=== PATIENT | female | born 1995 | race Hispanic/Latino ===

== ENCOUNTER 2019-01-20 13:12 | Emergency (ER) | payer OTHER ==
[2019-01-20 14:06] LABS: Absolute Lymphocytes (CBC) 1.4 K/uL (0.7-4.9); Basophils % 0.6 % (0-1.3); Eosinophils % 5.2 % (0-4.4); Hematocrit 43.5 % (36.0-45.0); Lymphocytes % 19.2 % (15.3-44.8); MPV 9.3 fL (7.6-11.3); Monocytes % 9.7 % (3.3-12.3); RBC Red Blood Cell Count 4.66 M/uL (3.86-4.86)
[2019-01-20 14:25] LABS: Potassium 3.8 mmol/L (3.5-5.1)
[2019-01-20] MEDS ORDERED: NA CHLORIDE 0.9% 1,000 ML ONE (15:04)
--- NOTE | 2019-01-20 15:48 | RAD REPORT ---
EXAM DESCRIPTION: US - Transvaginal OB - 01/20/2019 3:04 pm CLINICAL HISTORY: Vaginal bleeding, , beta HCG 195 COMPARISON: January 18 FINDINGS: No intrauterine gestational sac or sac remnant present. The gestational sac seen January 18 i s no longer present. No hematoma, mass or retained products of conception seen. No myometrial mass. Both ovaries are identified and normal in size. No suspicious ovarian or adnexal finding. No abnormal blood or fluid in the cul de sac. IMPRESSION: No intrauterine gestational sac or sac remnant. No retained products of conception.
--- NOTE | 2019-01-20 15:51 | ER ---
Nurse's Notes [facility] Name: Antonia Green Age: 23 yrs Sex: Female : 1995 Arrival Date: 01/20/2019 Time: 13:13 Bed 16 Private MD: Unknown, Unknown Diagnosis: Complete or unspecified spontaneous without complication Presentation: 01/20 13:20 Presenting complaint: Patient states: I was about 11wk and went to the [address] could not find FHT. That was on Wednesday, yesterday I passed a large amount of clot or tissue and today I am having some cramping and some spotting today. Basically I just want to know if I miscarried or what is going on. Transition of care: patient was not received from another setting of care. Onset of symptoms was January 20, 2019. Risk Assessment: Do you want to hurt yourself or someone else? Patient reports no desire to harm self or others. Initial Sepsis Screen: Does the patient meet any 2 criteria? No. Patient's initial sepsis screen is negative. Does the patient have a suspected source of infection? No. Patient's initial sepsis screen is negative. Care prior to arrival: None. 13:20 Method Of Arrival: Ambulatory [facility] 13:20 Acuity: MADI 3 nj1 Triage Assessment: 14:00 General: Appears in no apparent distress. comfortable, Behavior is calm, cooperative. ae4 Pain: Complains of pain in right lower quadrant and left lower quadrant Quality of pain is described as crampy. EENT: No signs and/or symptoms were reported regarding the EENT system. Neuro: Level of Consciousness is awake, alert, obeys commands, Oriented to person, place, time, situation, Appropriate for age. Cardiovascular: Patient's skin is warm and dry. Respiratory: Airway is patent Respiratory effort is even, unlabored, Respiratory pattern is regular, symmetrical. GI: Abdomen is flat, non-distended, Abd is soft and non tender X 4 quads. : Reports vaginal bleeding that is spotty. Derm: Skin is normal. Musculoskeletal: No signs and/or symptoms reported regarding the musculoskeletal system. 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 - Social history:: Smoking status: Patient/guardian denies using tobacco. - Ebola Screening: : No symptoms or risks identified at this time. Screenin:00 Abuse screen: Denies threats or abuse. Nutritional screening: No deficits noted. ae4 Tuberculosis screening: No symptoms or risk factors identified. Fall Risk None identified. Assessment: 15:59 Reassessment: Patient appears in no apparent distress at this time. Patient and/or ae4 family updated on plan of care and expected duration. Pain level reassessed. Patient states feeling better. 16:03 Reassessment: Patient appears in no apparent distress at this time. Patient and/or ae4 family updated on plan of care and expected duration. Pain level reassessed. Patient is alert, oriented x 3, equal unlabored respirations, skin warm/dry/pink. Provider at bedside discussing plan of care. IV fluids still infusing. 16:04 GI: Bowel sounds present X 4 quads. ae4 Vital Signs: 13:22 BP 140 / 80; Pulse 115; Resp 16; Temp 98.3; Pulse Ox 98% on R/A; Weight 56.7 kg; Height la1 5 ft. 5 in. (165.10 cm); 14:53 BP 107 / 56; Pulse 77; Resp 16; Pulse Ox 99% on R/A; ae4 15:20 BP 115 / 65; Pulse 77; Resp 16; Temp 98.3(O); Pulse Ox 99% on R/A; ae4 13:22 Body Mass Index 20.80 (56.70 kg, 165.10 cm) la1 ED Course: 13:13 Patient arrived in ED. ag5 13:15 Unknown, Unknown is Private Physician. ag5 13:22 Triage completed. la1 13:22 Arm band placed on left wrist. la1 13:46 [facility]C [facility] snw 13:46 Haris Houser MD is Attending Physician. snw 14:00 Bed in low position. Call light in reach. Side rails up X 1. Pulse ox on. NIBP on. Warm ae4 blanket given. 14:01 Initial lab(s) drawn, by me, sent to lab. Inserted saline lock: 20 gauge in left ms antecubital area, using aseptic technique. Blood collected. 14:47 Collin Klein, RN is Primary Nurse. ae4 15:06 Transvaginal Ob In Process Unspecified. EDMS 16:18 No provider procedures requiring assistance completed. IV discontinued, intact, ae4 bleeding controlled, No redness/swelling at site. Pressure dressing applied. Administered Medications: 14:50 Drug: NS 0.9% 1000 ml Route: IV; Rate: 1 bolus; Site: left antecubital; ae4 Outcome: 15:50 Discharge ordered by . niko 16:18 Patient left the ED. ae4 16:18 Discharged to home ambulatory. ae4 16:18 Condition: stable 16:18 Discharge instructions given to patient, Instructed on discharge instructions, follow up and referral plans. Demonstrated understanding of instructions. Signatures: Dispatcher [employer] EDKS Grisel Jeong, TOLL LINE INSPECTOR-C TOLL LINE INSPECTOR-Csnw Adwoa Morales ms, Lee RN RN la1 Thalia Unger ag5 Collin Klein, RN RN ae4
--- NOTE | 2019-01-20 15:51 | EDPHYS ---
Physician Documentation [facility] Name: Antonia Green Age: 23 yrs Sex: Female : 1995 Arrival Date: 01/20/2019 Time: 13:13 Bed 16 Private MD: Unknown, Unknown ED Physician Haris Houser HPI: 01/20 14:37 This 23 yrs old Female presents to ER via Ambulatory with complaints of snw Abdominal Pain, Vaginal Bleeding, + Preg <12wks. 14:37 The patient presents with abdominal pain in the lower abdomen. Onset: The snw symptoms/episode began/occurred gradually, 3 day(s) ago, and improved. The symptoms do not radiate. Associated signs and symptoms: Pertinent positives: vaginal bleeding. The symptoms are described as crampy. Severity of pain: At its worst the pain was moderate in the emergency department the pain has improved. The patient has not experienced similar symptoms in the past. The patient has not recently seen a physician. Pt is here with first , pt states she should be around 11 weeks . Had some lower abd pain and bleeding then passed a large clot and the bleeding slowed to spotting.. 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 - Social history:: Smoking status: Patient/guardian denies using tobacco. - Ebola Screening: : No symptoms or risks identified at this time. ROS: 14:36 Constitutional: Negative for fever, chills, and weight loss, Eyes: Negative for injury, snw pain, redness, and discharge, ENT: Negative for injury, pain, and discharge, Neck: Negative for injury, pain, and swelling, Cardiovascular: Negative for chest pain, palpitations, and edema, Respiratory: Negative for shortness of breath, cough, wheezing, and pleuritic chest pain, Back: Negative for injury and pain, MS/Extremity: Negative for injury and deformity, Skin: Negative for injury, rash, and discoloration, Neuro: Negative for headache, weakness, numbness, tingling, and seizure. 14:36 Abdomen/GI: Positive for abd cramping. 14:36 : Positive for vaginal bleeding, passed "large blood clot and then the bleeding slowed to spotting". Exam: 14:34 Constitutional: This is a well developed, well nourished patient who is awake, alert, snw and in no acute distress. Head/Face: Normocephalic, atraumatic. Eyes: Pupils equal round and reactive to light, extra-ocular motions intact. Lids and lashes normal. Conjunctiva and sclera are non-icteric and not injected. Cornea within normal limits. Periorbital areas with no swelling, redness, or edema. ENT: Nares patent. No nasal discharge, no septal abnormalities noted. Tympanic membranes are normal and external auditory canals are clear. Oropharynx with no redness, swelling, or masses, exudates, or evidence of obstruction, uvula midline. Mucous membranes moist. Neck: Trachea midline, no thyromegaly or masses palpated, and no cervical lymphadenopathy. Supple, full range of motion without nuchal rigidity, or vertebral point tenderness. No Meningismus. Chest/axilla: Normal chest wall appearance and motion. Nontender with no deformity. No lesions are appreciated. Cardiovascular: Tachycardic rate and rhythm with a normal S1 and S2. No gallops, murmurs, or rubs. Normal PMI, no JVD. No pulse deficits. Respiratory: Lungs have equal breath sounds bilaterally, clear to auscultation and percussion. No rales, rhonchi or wheezes noted. No increased work of breathing, no retractions or nasal flaring. Back: No spinal tenderness. No costovertebral tenderness. Full range of motion. Skin: Warm, dry with normal turgor. Normal color with no rashes, no lesions, and no evidence of cellulitis. MS/ Extremity: Pulses equal, no cyanosis. Neurovascular intact. Full, normal range of motion. Neuro: Awake and alert, GCS 15, oriented to person, place, time, and situation. Cranial nerves II-XII grossly intact. Motor strength 5/5 in all extremities. Sensory grossly intact. Cerebellar exam normal. Normal gait. Psych: Awake, alert, with orientation to person, place and time. Behavior, mood, and affect are within normal limits. 14:34 Abdomen/GI: Inspection: abdomen appears normal, Bowel sounds: normal, Palpation: abdomen is soft and non-tender. Vital Signs: 13:22 BP 140 / 80; Pulse 115; Resp 16; Temp 98.3; Pulse Ox 98% on R/A; Weight 56.7 kg; Height la1 5 ft. 5 in. (165.10 cm); 14:53 BP 107 / 56; Pulse 77; Resp 16; Pulse Ox 99% on R/A; ae4 15:20 BP 115 / 65; Pulse 77; Resp 16; Temp 98.3(O); Pulse Ox 99% on R/A; ae4 13:22 Body Mass Index 20.80 (56.70 kg, 165.10 cm) la1 MDM: 13:46 Patient medically screened. snw 15:51 Data reviewed: vital signs, nurses notes. Data interpreted: Pulse oximetry: on room air snw is 98 %. Interpretation: normal. Counseling: I had a detailed discussion with the patient and/or guardian regarding: the historical points, exam findings, and any diagnostic results supporting the discharge/admit diagnosis, the presence of at least one elevated blood pressure reading (>120/80) during this emergency department visit, lab results, radiology results, the need for outpatient follow up, to return to the emergency department if symptoms worsen or persist or if there are any questions or concerns that arise at home. Special discussion: Based on the history and exam findings, there is no indication for further emergent testing or inpatient evaluation. I discussed with the patient/guardian the need to see the OB Gyne specialist for further evaluation of the symptoms. 01/20 13:47 Order name: Quantitative Hcg; Complete Time: 14:32 snw 01/20 13:47 Order name: Abo/rh Typing; Complete Time: 15:26 snw 01/20 13:47 Order name: Basic Metabolic Panel; Complete Time: 14:32 snw 01/20 13:47 Order name: CBC with Diff; Complete Time: 14:13 snw 01/20 14:33 Order name: US Transvaginal Ob; Complete Time: 15:49 snw 01/20 13:47 Order name: Urine Test (obtain specimen); Complete Time: 14:01 snw 01/20 13:47 Order name: IV Saline Lock; Complete Time: 14:01 snw 01/20 13:47 Order name: Labs collected and sent; Complete Time: 14:01 snw 07/12 13:47 Order name: NPO; Complete Time: 14:01 snw 01/20 13:47 Order name: Urine Dipstick-Ancillary (obtain specimen); Complete Time: 14:01 snw 01/20 15:52 Order name: Recheck VS; Complete Time: 15:59 snw Administered Medications: 14:50 Drug: NS 0.9% 1000 ml Route: IV; Rate: 1 bolus; Site: left antecubital; ae4 Disposition: 16:26 Co-signature as Attending Physician, Haris Houser MD. rn Disposition: 01/20/19 15:50 Discharged to Home. Impression: Complete or unspecified spontaneous without complication. - Condition is Stable. - Discharge Instructions: Miscarriage, Rehydration, Adult. - Medication Reconciliation Form, Thank You Letter, Antibiotic Education, Prescription Opioid Use form. - Follow up: Emergency Department; When: As needed; Reason: Worsening of condition. Follow up: Private Physician; When: 2 - 3 days; Reason: Recheck today's complaints, Continuance of care, Re-evaluation by your physician. Signatures: Dispatcher [employer] EDMS Grisel Jeong, BLACK OXIDE COATING EQUIPMENT TENDER-C BLACK OXIDE COATING EQUIPMENT TENDER-Csnw Haris Houser MD MD rn Attema, Ant RN RN la1 Collin Klein RN RN ae4 Corrections: (The following items were deleted from the chart) 14:35 14:34 Constitutional: This is a well developed, well nourished patient who is awake, snw alert, and in no acute distress. Head/Face: Normocephalic, atraumatic. Eyes: Pupils equal round and reactive to light, extra-ocular motions intact. Lids and lashes normal. Conjunctiva and sclera are non-icteric and not injected. Cornea within normal limits. Periorbital areas with no swelling, redness, or edema. ENT: Nares patent. No nasal discharge, no septal abnormalities noted. Tympanic membranes are normal and external auditory canals are clear. Oropharynx with no redness, swelling, or masses, exudates, or evidence of obstruction, uvula midline. Mucous membranes moist. Neck: Trachea midline, no thyromegaly or masses palpated, and no cervical lymphadenopathy. Supple, full range of motion without nuchal rigidity, or vertebral point tenderness. No Meningismus. Chest/axilla: Normal chest wall appearance and motion. Nontender with no deformity. No lesions are appreciated. Cardiovascular: Regular rate and rhythm with a normal S1 and S2. No gallops, murmurs, or rubs. Normal PMI, no JVD. No pulse deficits. Respiratory: Lungs have equal breath sounds bilaterally, clear to auscultation and percussion. No rales, rhonchi or wheezes noted. No increased work of breathing, no retractions or nasal flaring. Back: No spinal tenderness. No costovertebral tenderness. Full range of motion. Skin: Warm, dry with normal turgor. Normal color with no rashes, no lesions, and no evidence of cellulitis. MS/ Extremity: Pulses equal, no cyanosis. Neurovascular intact. Full, normal range of motion. Neuro: Awake and alert, GCS 15, oriented to person, place, time, and situation. Cranial nerves II-XII grossly intact. Motor strength 5/5 in all extremities. Sensory grossly intact. Cerebellar exam normal. Normal gait. Psych: Awake, alert, with orientation to person, place and time. Behavior, mood, and affect are within normal limits. snw 16:18 15:50 01/20/2019 15:50 Discharged to Home. Impression: Complete or unspecified ae4 spontaneous without complication. Condition is Stable. Forms are Medication Reconciliation Form, Thank You Letter, Antibiotic Education, Prescription Opioid Use. Follow up: Emergency Department; When: As needed; Reason: Worsening of condition. Follow up: Private Physician; When: 2 - 3 days; Reason: Recheck today's complaints, Continuance of care, Re-evaluation by your physician. snw
== END 2019-01-20 16:18 | disposition home or self-care (01) ==
LOC: ER 13:12
DX: O03.9 Complete or unspecified spontaneous abortion without complication (principal)
CPT/HCPCS: 36415; 76817; 80048; 84702; 85025; 86900; 86901; 99284; J7030

== ENCOUNTER 2019-03-02 09:01 | Emergency (ER) | payer OTHER, SELFPAY ==
[2019-03-02 09:33] LABS: Urine Blood TRACE (NEG); Urine Glucose NEGATIVE (NEG); Urine Protein TRACE (NEG)
[2019-03-02] MEDS ORDERED: NA CHLORIDE 0.9% 2,000 ML ONE (09:51)
[2019-03-02] MEDS ORDERED: METOCLOPRAMIDE 10 MG/2mL INJ ONE (09:51)
[2019-03-02 10:30] LABS: Basophils % 0.3 % (0-1.3); Hematocrit 43.9 % (36.0-45.0); Lymphocytes % 11.9 % (15.3-44.8); MPV 9.4 fL (7.6-11.3); RBC Red Blood Cell Count 4.81 M/uL (3.86-4.86)
[2019-03-02] MEDS ORDERED: DIPHENHYDRAMINE 50 MG/ML VIAL ONE (10:34)
[2019-03-02 10:41] LABS: BUN Blood Urea Nitrogen 9 mg/dL (7-18); Bicarbonate 23 mmol/L (21-32); Glucose Level 85 mg/dL (74-106); Potassium 3.7 mmol/L (3.5-5.1); Sodium Level 138 mmol/L (136-145)
--- NOTE | 2019-03-02 11:10 | EDPHYS ---
Physician Documentation [facility] Name: Antonia Green Age: 23 yrs Sex: Female : 1995 Arrival Date: 03/02/2019 Time: 09:05 Bed 18 Private MD: ED Physician Kiran Andujar HPI: 03/02 10:36 This 23 yrs old Female presents to ER via Ambulatory with complaints of jr8 Vomiting - unk weeks preg. 10:36 The patient presents to the emergency department with nausea, vomiting. Onset: The jr8 symptoms/episode began/occurred yesterday. Possible causes: . The symptoms are aggravated by food , The symptoms are alleviated by nothing. Associated signs and symptoms: Pertinent positives: weakness and fatigue. Severity of symptoms: At their worst the symptoms were moderate in the emergency department the symptoms are unchanged. The patient has experienced a previous episode. The patient has not recently seen a physician. Stated that she had miscarriage in November. Has recovered from that and started to try again early last month. Took test and was found to be . Unknown LMP due to miscarry. Currently without abdominal pain/cramping, or vaginal bleeding/spotting. Has been nauseated for 3 days. Started to vomit uncontrollably yesterday. Now weak and fatigue . 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 - Social history:: Smoking status: Patient/guardian denies using tobacco. - Ebola Screening: : No symptoms or risks identified at this time. ROS: 10:36 Eyes: Negative for injury, pain, redness, and discharge, ENT: Negative for injury, jr8 pain, and discharge, Neck: Negative for injury, pain, and swelling, Cardiovascular: Negative for chest pain, palpitations, and edema, Respiratory: Negative for shortness of breath, cough, wheezing, and pleuritic chest pain, Back: Negative for injury and pain, : Negative for injury, bleeding, discharge, and swelling, MS/Extremity: Negative for injury and deformity, Skin: Negative for injury, rash, and discoloration, Neuro: Negative for headache, weakness, numbness, tingling, and seizure. 10:36 Abdomen/GI: Positive for nausea and vomiting, Negative for abdominal pain, diarrhea, constipation, abdominal cramps, abdominal distension. Exam: 10:36 Eyes: Pupils equal round and reactive to light, extra-ocular motions intact. Lids and jr8 lashes normal. Conjunctiva and sclera are non-icteric and not injected. Cornea within normal limits. Periorbital areas with no swelling, redness, or edema. ENT: Nares patent. No nasal discharge, no septal abnormalities noted. Tympanic membranes are normal and external auditory canals are clear. Oropharynx with no redness, swelling, or masses, exudates, or evidence of obstruction, uvula midline. Mucous membranes moist. Neck: Trachea midline, no thyromegaly or masses palpated, and no cervical lymphadenopathy. Supple, full range of motion without nuchal rigidity, or vertebral point tenderness. No Meningismus. Cardiovascular: Sinus Tachycardia with a normal S1 and S2. No gallops, murmurs, or rubs. Normal PMI, no JVD. No pulse deficits. Respiratory: Lungs have equal breath sounds bilaterally, clear to auscultation and percussion. No rales, rhonchi or wheezes noted. No increased work of breathing, no retractions or nasal flaring. Abdomen/GI: Soft, non-tender, with normal bowel sounds. No distension or tympany. No guarding or rebound. No evidence of tenderness throughout. Back: No spinal tenderness. No costovertebral tenderness. Full range of motion. Skin: Warm, dry with normal turgor. Normal color with no rashes, no lesions, and no evidence of cellulitis. MS/ Extremity: Pulses equal, no cyanosis. Neurovascular intact. Full, normal range of motion. Neuro: Awake and alert, GCS 15, oriented to person, place, time, and situation. Cranial nerves II-XII grossly intact. Motor strength 5/5 in all extremities. Sensory grossly intact. Cerebellar exam normal. Normal gait. Vital Signs: 09:13 BP 131 / 74; Pulse 110; Resp 16; Temp 97.7; Pulse Ox 100% ; Weight 52.16 kg; Height 5 hb ft. 7 in. (170.18 cm); Pain 0/10; 10:28 BP 101 / 88; Pulse 105; Resp 18 S; Pulse Ox 100% on R/A; Pain 0/10; aa5 12:40 BP 107 / 84; Pulse 108; Resp 18 S; Pulse Ox 100% on R/A; Pain 0/10; aa5 09:13 Body Mass Index 18.01 (52.16 kg, 170.18 cm) hb 12:40 PA notified of VS before d/c home, states it's okay to d/c patient now. aa5 MDM: 09:22 Patient medically screened. ramandeep 10:57 Data reviewed: vital signs, nurses notes, lab test result(s), and as a result, I will jr8 discharge patient. Data interpreted: Pulse oximetry: on room air is 100 %. Interpretation: normal. Counseling: I had a detailed discussion with the patient and/or guardian regarding: the historical points, exam findings, and any diagnostic results supporting the discharge/admit diagnosis, lab results, the need for outpatient follow up, an OB/Gyne specialist, to return to the emergency department if symptoms worsen or persist or if there are any questions or concerns that arise at home. Response to treatment: the patient's symptoms have markedly improved after treatment, patient is well hydrated. 03/02 09:19 Order name: Urine Dipstick--Ancillary (enter results); Complete Time: 09:45 03/02 09:19 Order name: Urine --Ancillary (enter results); Complete Time: 09:45 03/02 09:45 Order name: Basic Metabolic Panel; Complete Time: 10:46 03/02 09:45 Order name: CBC with Diff; Complete Time: 10:39 03/02 09:45 Order name: Creatinine for Radiology; Complete Time: 10:46 03/02 09:45 Order name: IV Saline Lock; Complete Time: 10:22 03/02 09:45 Order name: Labs collected and sent; Complete Time: : Administered Medications: 10:20 Drug: NS 0.9% 1000 ml Route: IV; Rate: 1000 ml; Site: right antecubital; aa5 10:35 Follow up: IV Status: Completed infusion; IV Intake: 1000ml aa5 10:20 Drug: NS 0.9% 1000 ml Route: IV; Rate: 1000 ml; Site: right antecubital; aa5 11:43 Follow up: IV Status: Completed infusion; IV Intake: 1000ml aa5 10:22 Drug: Reglan 10 mg Route: IVP; Site: right antecubital; aa5 10:35 Follow up: Response: Pt c/o feeling anxious and restless, PA was notified aa5 10:37 Drug: Benadryl 25 mg Route: IVP; Site: right antecubital; aa5 11:48 Drug: Phenergan 12.5 mg Route: IVP; Site: right antecubital; aa5 Disposition: 15:30 Co-signature as Attending Physician, Kiran Andujar MD I agree with the assessment and ramandeep plan of care. Disposition: 03/02/19 11:09 Discharged to Home. Impression: Vomiting of , unspecified, Dehydration. - Condition is Stable. - Discharge Instructions: Dehydration, Adult, Morning Sickness, [id number]. - Prescriptions for promethazine 25 mg Oral Tablet - take 1 tablet by ORAL route every 6 hours As needed; 20 tablet. - Medication Reconciliation Form, Thank You Letter, Antibiotic Education, Prescription Opioid Use form. - Follow up: Private Physician; When: 2 - 3 days; Reason: Recheck today's complaints, Continuance of care, Re-evaluation by your physician. - Problem is new. - Symptoms have improved. Signatures: Dispatcher [employer] EDKiran Rich MD MD cha Calderon, Audri, RN RN aa5 Jayjay Perez PA PA jr8 Ant Magdaleno RN RN la1 [place] Landeros RN RN Corrections: (The following items were deleted from the chart) 13:21 11:09 03/02/2019 11:09 Discharged to Home. Impression: Vomiting of , la1 unspecified; Dehydration. Condition is Stable. Discharge Instructions: Dehydration, Adult, Morning Sickness, [id number]. Prescriptions for promethazine 25 mg Oral Tablet - take 1 tablet by ORAL route every 6 hours As needed; 20 tablet. and Forms are Medication Reconciliation Form, Thank You Letter, Antibiotic Education, Prescription Opioid Use. Follow up: Private Physician; When: 2 - 3 days; Reason: Recheck today's complaints, Continuance of care, Re-evaluation by your physician. Problem is new. Symptoms have improved. jr8
--- NOTE | 2019-03-02 11:10 | ER ---
Nurse's Notes [facility] Name: Antonia Green Age: 23 yrs Sex: Female : 1995 Arrival Date: 03/02/2019 Time: 09:05 Bed 18 Private MD: Diagnosis: Vomiting of , unspecified;Dehydration Presentation: 03/02 09:11 Presenting complaint: Nausea x 2 days, vomiting today. Not tolerating fluids. Reports + hb home test, has not had menses since miscarriage in November. Transition of care: patient was not received from another setting of care. Onset of symptoms was March 01, 2019. Risk Assessment: Do you want to hurt yourself or someone else? Patient reports no desire to harm self or others. Initial Sepsis Screen: Does the patient meet any 2 criteria? No. Patient's initial sepsis screen is negative. Does the patient have a suspected source of infection? No. Patient's initial sepsis screen is negative. Care prior to arrival: None. 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 - Social history:: Smoking status: Patient/guardian denies using tobacco. - Ebola Screening: : No symptoms or risks identified at this time. Screenin:00 Abuse screen: Denies threats or abuse. Nutritional screening: No deficits noted. aa5 Tuberculosis screening: No symptoms or risk factors identified. Fall Risk None identified. Assessment: 10:00 General: Appears uncomfortable, Behavior is calm, cooperative. Pain: Denies pain. aa5 Neuro: Level of Consciousness is awake, alert, obeys commands, Oriented to person, place, time, situation. Cardiovascular: Heart tones S1 S2 present Patient's skin is warm and dry. Rhythm is regular. Respiratory: Airway is patent Respiratory effort is even, unlabored, Respiratory pattern is regular, symmetrical. GI: Abdomen is flat, non-distended, Bowel sounds present X 4 quads. Abd is soft and non tender X 4 quads. Reports nausea, vomiting, since yesterday. Pt states "I haven't really eaten in about 3 days" Patient currently denies abdominal pain. : Denies burning with urination, inability to void, urinary frequency, urgency, vaginal bleeding. EENT: No signs and/or symptoms were reported regarding the EENT system. Derm: Skin is pink, warm \\T\\ dry. Musculoskeletal: Range of motion: intact in all extremities. 10:35 Reassessment: Patient is alert, oriented x 3, equal unlabored respirations, skin aa5 warm/dry/pink. Patient states symptoms have not improved. Pt c/o feeling anxious and restless, PA was notified . 11:43 Reassessment: Patient is alert, oriented x 3, equal unlabored respirations, skin aa5 warm/dry/pink. Pt reports anxiety has decreased, c/o nausea, PA notified. . 12:40 Reassessment: Patient is alert, oriented x 3, equal unlabored respirations, skin aa5 warm/dry/pink. Patient denies pain at this time. Patient states feeling better. Pt requesting to speak to PA before d/c home, PA notified . 13:15 Reassessment: Patient is alert, oriented x 3, equal unlabored respirations, skin aa5 warm/dry/pink. Vital Signs: 09:13 BP 131 / 74; Pulse 110; Resp 16; Temp 97.7; Pulse Ox 100% ; Weight 52.16 kg; Height 5 hb ft. 7 in. (170.18 cm); Pain 0/10; 10:28 BP 101 / 88; Pulse 105; Resp 18 S; Pulse Ox 100% on R/A; Pain 0/10; aa5 12:40 BP 107 / 84; Pulse 108; Resp 18 S; Pulse Ox 100% on R/A; Pain 0/10; aa5 09:13 Body Mass Index 18.01 (52.16 kg, 170.18 cm) hb 12:40 PA notified of VS before d/c home, states it's okay to d/c patient now. aa5 ED Course: 09:05 Patient arrived in ED. cf2 09:13 Triage completed. hb 09:13 Brandi Kern, RN is Primary Nurse. aa5 09:13 Arm band placed on. hb 09:18 Urine collected: clean catch specimen, marcus colored. [facility] 09:20 [facility] jr8 09:20 Kiran Andujra MD is Attending Physician. jr8 10:00 Patient has correct armband on for positive identification. Bed in low position. Call aa5 light in reach. Side rails up X2. 10:17 Initial lab(s) drawn, by me, sent to lab. Inserted saline lock: 22 gauge in right [facility] antecubital area, using aseptic technique. Blood collected. 13:15 No provider procedures requiring assistance completed. IV discontinued, intact, aa5 bleeding controlled, No redness/swelling at site. Pressure dressing applied. Administered Medications: 10:20 Drug: NS 0.9% 1000 ml Route: IV; Rate: 1000 ml; Site: right antecubital; aa5 10:35 Follow up: IV Status: Completed infusion; IV Intake: 1000ml aa5 10:20 Drug: NS 0.9% 1000 ml Route: IV; Rate: 1000 ml; Site: right antecubital; aa5 11:43 Follow up: IV Status: Completed infusion; IV Intake: 1000ml aa5 10:22 Drug: Reglan 10 mg Route: IVP; Site: right antecubital; aa5 10:35 Follow up: Response: Pt c/o feeling anxious and restless, SERGEY was notified aa5 10:37 Drug: Benadryl 25 mg Route: IVP; Site: right antecubital; aa5 11:48 Drug: Phenergan 12.5 mg Route: IVP; Site: right antecubital; aa5 Intake: 10:35 IV: 1000ml; Total: 1000ml. aa5 11:43 IV: 1000ml; Total: 2000ml. aa5 Outcome: 11:09 Discharge ordered by . jr8 13:15 Discharged to home ambulatory. aa5 13:15 Condition: stable 13:15 Discharge instructions given to patient, Instructed on discharge instructions, follow up and referral plans. medication usage, Demonstrated understanding of instructions, follow-up care, medications, Prescriptions given X 1. 13:18 Patient left the ED. aa5 Signatures: Brandi Kern RN RN 5 Jayjay Perez PA PA [facility] Ant Magdaleno RN RN mn1 [place] Landeros RN RN hb Herrera, Deanna [facility] Chantell Moss cf2 Corrections: (The following items were deleted from the chart) 10:31 10:28 Pulse 105bpm; Resp 18bpm; Spontaneous; Pulse Ox 100% RA; Pain 0/10; aa5 aa5 13:26 13:21 Patient left the ED. la1 aa5 15:19 12:40 BP 107 / 84; Pulse 108bpm; Resp 18bpm; Spontaneous; Pulse Ox 100% RA; Pain 0/10; aa5 aa5
[2019-03-02] MEDS ORDERED: PROMETHAZINE 25 MG/ML VIAL ONE (11:44)
== END 2019-03-02 13:21 | disposition home or self-care (01) ==
LOC: ER 09:01
DX: O21.9 Vomiting of pregnancy, unspecified (principal); E86.0 Dehydration; Z3A.00 Weeks of gestation of pregnancy not specified
CPT/HCPCS: 36415; 80048; 81003; 81025; 85025; 96361; 96374; 96375; 99284; J2550; J2765; J7030

== ENCOUNTER 2023-02-18 10:36 | Emergency (ER) | payer SELFPAY ==
--- OUTSIDE RECORDS SUMMARY | 2023-02-18 10:46 | XMS REPORT | Continuity of Care Document ---
:1995 Author Organization [facility] t Address [address] [place] [address] Care Team Providers Name Role Phone Asked, No Pcp Primary Care Physician Unavailable ERICKSON_GCBZW_Haris_Jamie Attending Clinician Unavailable JON MILLER Attending Clinician Unavailable COLIN BERMUDEZ Attending Clinician Unavailable [id number] Attending Clinician Unavailable Marsha Artis MD Attending Clinician JANETT SWEENEY Attending Clinician Unavailable GC_GCBZW_Harsi_Jamie Admitting Clinician Unavailable Problems Condition Condition Condition Status Onset Resolution Last Treating Co mments Source Name Details Category Date Date Treatment Clinician Date No known No known Disease Metho di active active st problems problems Hospit a l Allergies, Adverse Reactions, Alerts This patient has no known allergies or adverse reactions. Social History Social Habit Start Date Stop Date Quantity Comments Source Gender identity [facility] Exposure to Not sure Deysi cisneros SARS-CoV-2 (event) Tobacco use and 2021-04-10 2021-04-10 Smokeless Deysi becerra exposure 00:00:00 00:00:00 tobacco non-user Alcohol intake 2020-02-20 2020-02-20 [facility]00 non-drinker Hospital (finding) History of Social 2020-02-20 2020-02-[address] function 00:00:00 00:00:00 Hospital Sex Assigned At [birth year] [facility] Smoking Status Start Date Stop Date Source Never smoked tobacco Deysi Montemayor old Medications Ordered Filled Start Stop Current Ordering Indication Dosage Frequency Signature Comments Components Source Medication Medication Date Date Medication? Clinician (SIG) Name Name Doxycycline 1- No [id number] 100mg Take 1 Deysi Hyclate 100 9-30 - capsule Seyb old MG oral 00:00: 04:59 (100 mg Capsule 00 :00 total) by mouth 2 times daily for 7 days No known 2020-0 No No known Metho di medications [address] [facility] No known 2019-0 No No known Metho di medications [address] 13[facility] No known 2020-0 No No known Metho di medications [address] 13[facility] hydroxyzine 2018-0 No 12mg HCl 25 mg 8-28 tablet 00:00: 00 metronidazo 0 No 4mg le 500 mg 7-17 tablet 00:00: 00 No known No [facility] Vital Signs Vital Name Observation Time Observation Value Comments Source Systolic blood pressure 2021-04-10 21:03:00 108 mm[Hg] Deysi Semarinaold Diastolic blood 2021-04-10 21:03:00 70 mm[Hg] Kel y Parth pressure Heart rate 2021-04-10 21:03:00 70 /min Deysi bunnjohnny Body height 2021-04-10 21:03:00 165.1 cm Deysi alvaresedd Body weight 2021-04-10 21:03:00 51.075 kg Deysi thompson BMI 2021-04-10 21:03:00 18.74 kg/m2 Deysijigar bunnjohnny BP Systolic 2022-03-23 11:03:00 119 mm[Hg] BP Diastolic 2022-03-23 11:03:00 77 mm[Hg] Weight Measured 2022-03-23 11:03:00 124.20 pounds Height Measured 2022-03-23 11:03:00 66.00 inches Body Temperature 2022-03-23 11:03:00 98.30 degrees Heart Rate 2022-03-23 11:03:00 83.00 /min Respiratory Rate 2022-03-23 11:03:00 18.00 /min BP Systolic 2019-04-17 14:09:00 115 mm[Hg] BP Diastolic 2019-04-17 14:09:00 70 mm[Hg] Weight Measured 2019-04-17 14:09:00 116.80 pounds Height Measured 2019-04-17 14:09:00 66.00 inches Body Temperature 2019-04-17 14:09:00 99.80 degrees Heart Rate 2019-04-17 14:09:00 95.00 /min Respiratory Rate 2019-04-17 14:09:00 16.00 /min BP Systolic 2019-03-27 13:24:00 115 mm[Hg] BP Diastolic 2019-03-27 13:24:00 61 mm[Hg] Weight Measured 2019-03-27 13:24:00 116.40 pounds Height Measured 2019-03-27 13:24:00 66.00 inches Body Temperature 2019-03-27 13:24:00 98.14 degrees Heart Rate 2019-03-27 13:24:00 81.00 /min Respiratory Rate 2019-03-27 13:24:00 17.00 /min BP Systolic 2019-03-17 11:19:00 120 mm[Hg] BP Diastolic 2019-03-17 11:19:00 69 mm[Hg] Weight Measured 2019-03-17 11:19:00 117.20 pounds Height Measured 2019-03-17 11:19:00 66.00 inches Body Temperature 2019-03-17 11:19:00 97.90 degrees Heart Rate 2019-03-17 11:19:00 88.00 /min Respiratory Rate 2019-03-17 11:19:00 Body Temperature 2019-03-08 08:59:00 98.00 degrees Heart Rate 2019-03-08 08:59:00 88.00 /min Respiratory Rate 2019-03-08 08:59:00 17.00 /min BP Systolic 2019-03-08 08:59:00 106 mm[Hg] BP Diastolic 2019-03-08 08:59:00 62 mm[Hg] Weight Measured 2019-03-08 08:59:00 124.80 pounds Height Measured 2019-03-08 08:59:00 66.00 inches BP Systolic 2019-01-25 08:38:00 114 mm[Hg] BP Diastolic 2019-01-25 08:38:00 67 mm[Hg] Weight Measured 2019-01-25 08:38:00 125.80 pounds Height Measured 2019-01-25 08:38:00 66.00 inches Body Temperature 2019-01-25 08:38:00 98.30 degrees Heart Rate 2019-01-25 08:38:00 86.00 /min Respiratory Rate 2019-01-25 08:38:00 17.00 /min BP Systolic 2019-01-18 13:14:00 115 mm[Hg] BP Diastolic 2019-01-18 13:14:00 73 mm[Hg] Weight Measured 2019-01-18 13:14:00 126.60 pounds Height Measured 2019-01-18 13:14:00 66.00 inches Body Temperature 2019-01-18 13:14:00 99.00 degrees Heart Rate 2019-01-18 13:14:00 86.00 /min Respiratory Rate 2019-01-18 13:14:00 17.00 /min Procedures This patient has no known procedures. Plan of Care Planned Activity Planned Date Details Comments Source Future Scheduled 2023-02-14 [facility] 05:37:06 screening (procedure) [code = 722792481] Future Scheduled 2023-02-14 [facility] Test 05:37:06 malignant neoplasm of cervix (procedure) [code = 710523475] Future Scheduled 2023-02-14 INFLUENZA VACCINE [facility] Test 05:37:06 [code = INFLUENZA VACCINE] Future Scheduled 2023-02-14 COVID-19 VACCINE [facility] Test 05:37:06 (#1) [code = COVID-19 VACCINE (#1)] Future Scheduled 2022-12-27 COVID-19 VACCINE [facility] Test 11:14:28 (#1) [code = COVID-19 VACCINE (#1)] Future Scheduled 2022-12-27 [facility] 11:14:28 screening (procedure) [code = 638456070] Future Scheduled 2022-12-27 [facility] Test 11:14:28 malignant neoplasm of cervix (procedure) [code = 047315818] Future Scheduled 2022-12-27 [facility]ENZA VACCINE [facility] Test 11:14:28 [code = INFLUENZA VACCINE] Future Scheduled 2022-12-27 COVID-19 [facility]ACCINE [facility] Test 11:14:28 (#1) [code = COVID-19 VACCINE (#1)] Future Scheduled 2022-12-27 [facility] 11:14:28 screening (procedure) [code = 972568626] Future Scheduled 2022-12-27 [facility] Test 11:14:28 malignant neoplasm of cervix (procedure) [code = 249031874] Future Scheduled 2022-12-27 [facility]ZA VACCINE [facility] Test 11:14:28 [code = INFLUENZA VACCINE] Future Scheduled 2022-12-27 COVID-19 VACCINE [facility] Test 11:14:28 (#1) [code = COVID-19 VACCINE (#1)] Future Scheduled 2022-12-27 [facility] 11:14:28 screening (procedure) [code = 937148855] Future Scheduled 2022-12-27 [facility] Test 11:14:28 malignant neoplasm of cervix (procedure) [code = 846258985] Future Scheduled 2022-12-27 [facility]ZA [facility]ACCINE [facility] 11:14:28 [code = INFLUENZA VACCINE] Future Scheduled 2022-12-27 COVID-19 VACCINE [facility] Test 11:14:28 (#1) [code = COVID-19 VACCINE (#1)] Future Scheduled 2022-12-27 [facility] 11:14:28 screening (procedure) [code = 862985791] Future Scheduled 2022-12-27 [facility] Test 11:14:28 malignant neoplasm of cervix (procedure) [code = 698269713] Future Scheduled 2022-12-27 [facility]ENZA VACCINE [facility] Test 11:14:28 [code = INFLUENZA VACCINE] Future Scheduled 2022-12-27 COVID-19 VACCINE [facility] Test 11:14:28 (#1) [code = COVID-19 VACCINE (#1)] Future Scheduled 2022-12-27 [facility] 11:14:28 screening (procedure) [code = 993984210] Future Scheduled 2022-12-27 [facility] Test 11:14:28 malignant neoplasm of cervix (procedure) [code = 381870879] Future Scheduled 2022-12-27 [facility]FL[facility]ENZA VACCINE [facility] Test 11:14:28 [code = INFLUENZA VACCINE] Future Scheduled 2022-07-05 COVID-19 VACCINE [facility] Test 23:56:04 (#1) [code = COVID-19 VACCINE (#1)] Future Scheduled 2022-07-05 [facility] 23:56:04 screening (procedure) [code = 597842256] Future Scheduled 2022-07-05 [facility] Test 23:56:04 malignant neoplasm of cervix (procedure) [code = 670661338] Future Scheduled 2022-07-05 INFLUENZA VACCINE [facility] Test 23:56:04 [code = INFLUENZA VACCINE] Future Scheduled 2022-03-13 [facility]IS B [facility] 14:40:29 VACCINES (1 of 3 - 3-dose series) [code = HEPATITIS B VACCINES (1 of 3 - 3-dose series)] Future Scheduled 2022-03-13 COVID-19 VACCINE [facility] Test 14:40:29 (#1) [code = COVID-19 VACCINE (#1)] Future Scheduled 2022-03-13 [facility] Test 14:40:29 screening (procedure) [code = 757932495] Future Scheduled 2022-03-13 [facility] Test 14:40:29 malignant neoplasm of cervix (procedure) [code = 693067417] Future Scheduled 2022-03-13 INFLUENZA VACCINE [facility] Test 14:40:29 [code = INFLUENZA VACCINE] Future Scheduled 2022-03-13 [facility] B [facility] 14:40:29 VACCINES (1 of 3 - 3-dose series) [code = HEPATITIS B VACCINES (1 of 3 - 3-dose series)] Future Scheduled 2022-03-13 COVID-19 VACCINE [facility] Test 14:40:29 (#1) [code = COVID-19 VACCINE (#1)] Future Scheduled 2022-03-13 [facility] 14:40:29 screening (procedure) [code = 876131040] Future Scheduled 2022-03-13 [facility] Test 14:40:29 malignant neoplasm of cervix (procedure) [code = 019666719] Future Scheduled 2022-03-13 [facility]FL[facility]ENZA VACCINE [facility] Test 14:40:29 [code = INFLUENZA VACCINE] Future Scheduled 2022-03-13 [facility] 14:40:29 VACCINES (1 of 3 - 3-dose series) [code = HEPATITIS B VACCINES (1 of 3 - 3-dose series)] Future Scheduled 2022-03-13 COVID-[address] [facility] Test 14:40:29 (#1) [code = COVID-19 VACCINE (#1)] Future Scheduled 2022-03-13 [facility] 14:40:29 screening (procedure) [code = 042384395] Future Scheduled 2022-03-13 [facility] Test 14:40:29 malignant neoplasm of cervix (procedure) [code = 657162061] Future Scheduled 2022-03-13 INFLUENZA VACCINE [facility] Test 14:40:29 [code = INFLUENZA VACCINE] Future Scheduled COVID-[address] [facility] Test (1) [code = COVID-19 VACCINE (1)] Future Scheduled [facility] screening (procedure) [code = 266316029] Future Scheduled [facility] Test malignant neoplasm of cervix (procedure) [code = 554548010] Future Scheduled INFLUENZA VACCINE [facility] Test [code = INFLUENZA VACCINE] Future Scheduled CHLAMYDIA SCREENING [facility] [code = CHLAMYDIA SCREENING] Goal Plan of Care Note [code = 32643-9] Goal Plan of Care Note [code = 77705-6] Goal Plan of Care Note [code = 52786-9] Goal Plan of Care Note [code = 87516-2] Goal Plan of Care Note [code = 83879-9] Encounters Start End Encounter Admission Attending Care Care Encounter Source Date/Time Date/Time Type Type Clinicians Facility Department ID 2023-02-02 2023-02-02 Outpatient GC_GCBZW_Ro PRIV PRIV [id number] [facility] 00:00:00 00:00:00 man_M [id number] Medica l 2023-02-02 2023-02-02 Outpatient GC_GCBZW_ PRIV PRIV [id number] [facility] 00:00:00 00:00:00 man_M [id number] Medica l 2023-02-01 2023-02-01 Outpatient SFA SFA [id number] [facility] 09:42:29 09:42:29 0724 [facility] 2023-01-23 2023-01-23 Outpatient SFA SFA [id number] Biju 09:11:50 09:11:50 0715 F Gardiner 2023-01-22 2023-01-22 Outpatient SFA SFA [id number] [facility] 11:14:11 11:14:11 0714 F Gardiner 2023-01-21 2023-01-21 Outpatient SFA SFA [id number] [facility] 14:29:59 14:29:59 0713 [facility] 2022-09-14 2022-09-14 Outpatient SFA SFA [id number] Biju 10:33:35 10:33:35 [id number] [facility] 2022-03-28 2022-03-28 [facility] [id number] [facility] 06:06:00 09:48:00 2022-03-26 2022-03-26 Emergency E [facility] [id number] 08:31:00 12:32:00 COLIN 2022-03-23 2022-03-23 Outpatient [id number] 00:00:00 00:00:00 Visit [id number] 2021-04-10 2021-04-10 Outpatient NST83-[place] [id number] Deysi 16:30:00 16:30:00 Seybol d 2021-04-10 2021-04-10 Office KIAH Artis [id number] Deysi 15:42:01 15:57:01 Visit Marsha Ayala [id number] S jay [id number] 2021-04-10 2021-04-10 Outpatient DEYSI SWEENEY 102 [id number] Jo 11:30:00 11:30:00 JANETT cisneros Results Test Description Test Time Test Comments Results Result Comments Source PAP TEST, THINPREP, IMAGED 2022-03-25 10:47:09 Test Item Value Reference Range Interpretation Comme nts SOURCE: (test code = Cervical/Endocervical 8001) SLIDES: (test code = 1 8011) LMP: (test code = 8021) 03/16/2022 SPECIMEN ADEQUACY: (test (NOTE) Sa tisfactory for code = 36547) evaluation. E ndocervical cells/transform ation zone component prese nt. INTERPRETATION: (test NILM/NO EPITH. ABNORMALITY;SEE code = 60480) BELOW --- NEGATIVE FOR INTRAEPITHELIAL LESION OR MALIGNANCY Reactive cellular change s present (NILM).-------- DIRECTOR MARKETING ANALYTICS: (test Janet Olson [place] (ASCP) code = 8101) PATHOLOGIST France Romo M.D. INTERPRETATION BY: (test code = 8122) LOCATION: (test code = (NOTE) [place] [address]) Clinical Pathol [facility] [employer], [address] [place] [address], Phone: , CLIA: [id number] i nterpreted at [facility], [address], [facility] [place] [address], Phone: , CLIA: [id number] CPT: (test code = 8140) (NOTE) 8817 5, 16496 UNLESS OTHERWISE INDIC ATED, COMPUTER AIDED AND CYTOTECHNOLOGIS T SCREENING PERFORMED. The Pap test is a screening kaya t with an inherent, but l ow probability of error. Your patient should be reminded to consult you immediately if she experien brennan any suspicious sign s or symptoms, regar dless of her Pap test re sult. An alternate repor t format containing imag es or consolidated pr ior Pap history is avai lable as applicable. CT/NG, TMA, [id number] 19:07:40 Test Item Value Reference Range Interpretation Comments GONORRHEA, TMA NEGATIVE NEGATIVE Assay method ology is (test code = nucleic acid am plification 92313) by transcriptio n mediated amplification ( TMA) utilizing the A ptima Combo 2 Assay. CHLAMYDIA, TMA NEGATIVE NEGATIVE Assay method ology is (test code = nucleic acid am plification 15374) by transcriptio n mediated amplification ( TMA) utilizing the A ptima Combo 2 Assay. HPV HIGH RISK WITH GENOTYPE, [id number] 16:39:36 Test Item Value Reference Range Interpretation Comments HPV HIGH RISK INTERP NEGATIVE NEGATIVE (test code = 40304) HPV 16 (test code = NEGATIVE 40818) HPV 18 (test code = NEGATIVE 88049) HPV, HR, OTHER NEGATIVE Testing meth odology is GENOTYPES (test code real-ti me PCR utilizing = 28692) hydrolysis prob es with the 365webcallas 4800 system. The kaya t individually d etects genotypes 16 an d 18, as well as the oth er 12 high risk types (31,33,35,39,45 ,51,52,56 ,58,59,66,68). The expected result is negative. A neg ative result does not rule out the presence of HPV not included in the genotype set, a low leve l of infection or sp ecimen sampling error. UNLESS OTHERWISE INDIC ATED, ALL TESTING PERFORM ED [facility], [place] [place] [address] LABORATORY DIRE CTOR: ALISON GONZALES M.D. CLIA NUMBER [id number] [place] [id number] VAGINAL PATHOGENS DNA [id number] 15:16:19 Test Item Value Reference Range Interpretation Comments JESENIA SPECIES (test code = ) NEGATIVE NEGATIVE G. VAGINALIS (test code = ) NEGATIVE NEGATIVE T. VAGINALIS (test code = ) NEGATIVE NEGATIVE HEPATITIS PANEL, [id number] 03:40:36 Test Item Value Reference Range Interpretation Comments HEPATITIS A IgM (test NON-REACTIVE NON-REACTIVE code = 18551) HEPATITIS B CORE IgM NON-REACTIVE NON-REACTIVE (test code = 4644) HEPATITIS B SURF AG NON-REACTIVE NON-REACTIVE (test code = 2739) HEPATITIS C ANTIBODY NON-REACTIVE NON-REACTIVE (test code = 4675) INTERPRETATION (NOTE) Hepatitis A HEPATITIS A: (test code sero logy shows no = 2552) evidence of acu te hepatitis A. INTERPRETATION (NOTE) Hepatitis B HEPATITIS B: (test code sero logy shows no = 26044) evidence of acu te hepatitis B and no indication of exposure to hepatitis B vir us in the previous gladys eight months. INTERPRETATION (NOTE) Hepatitis C HEPATITIS C: (test code sero logy shows no = 73548) evidence of exposure to hepatitisC viru s at this time. I t can take up to 12 months after exposure tothe hepatitis C vir us for antibodies to become detectab le in the blood in certain patient s. HIV 1/2 4TH GEN, RFLX [id number] 03:40:36 Test Item Value Reference Range Interpretation Comments HIV 1/2 4TH GEN, RFLX CONF (test NON-REACTIVE NON-REACTIVE code = 3514) [id number] 03:05:53 Test Item Value Reference Range Interpretation Comments RPR RESULT (test NON-REACTIVE NON-REACTIVE code = 3501) RPR TITER (test NOT INDIC. NOT INDIC. UNLESS OTH ERWISE code = 3500) TITER INDICATED, ALL TESTING PERFORMED [facility] NICAL PATHOLOGY LAB[facility] [address] [place] [address] 4 LABORATORY DIRE CTOR: ALISON GONZALES M.D. CLIA NUMBER [id number] [place] [id number] THC METABOLITE, QUANT, URINE [REFLEX]2019-03-30 00:00:00 Test Item Value Reference Range Interpretation Comments CARBOXY-THC INTERP (test code = Positive 01096) CARBOXY-THC QNT (test code = 15994) 126 ng/mL THC METABOLITE, QUANT, URINE [REFLEX]2019-03-30 00:00:00 Test Item Value Reference Range Interpretation Comments CARBOXY-THC INTERP (test code = Positive 43121) CARBOXY-THC QNT (test code = 19181) 126 ng/mL HEMOGLOBIN [id number] 00:00:00 Test Item Value Reference Range Interpretation Comments HEMOGLOBIN A1 (test code = 2575) 97.1 % HEMOGLOBIN A2 (test code = 2576) 2.9 % HEMOGLOBIN F () (test code 0.0 % = 2722) HEMOGLOBIN S (test code = 2724) NONE % HEMOGLOBIN C (test code = 2726) NONE % OTHER HEMOGLOBIN VARIANT (test NONE DETEC % code = 22520) PATHOLOGIST'S INTERPRETATION (NOTE) (test code = 2577) HEMOGLOBIN [id number] 00:00:00 Test Item Value Reference Range Interpretation Comments HEMOGLOBIN A1 (test code = 2575) 97.1 % HEMOGLOBIN A2 (test code = 2576) 2.9 % HEMOGLOBIN F () (test code 0.0 % = 2722) HEMOGLOBIN S (test code = 2724) NONE % HEMOGLOBIN C (test code = 2726) NONE % OTHER HEMOGLOBIN VARIANT (test NONE DETEC % code = 75495) PATHOLOGIST'S INTERPRETATION (NOTE) (test code = 2577) HEMOGLOBIN [id number] 00:00:00 Test Item Value Reference Range Interpretation Comments HEMOGLOBIN A1 (test code = 2575) 97.1 % HEMOGLOBIN A2 (test code = 2576) 2.9 % HEMOGLOBIN F () (test code 0.0 % = 2722) HEMOGLOBIN S (test code = 2724) NONE % HEMOGLOBIN C (test code = 2726) NONE % OTHER HEMOGLOBIN VARIANT (test NONE DETEC % code = 96083) PATHOLOGIST'S INTERPRETATION (NOTE) (test code = 2577) CULTURE, [id number] 00:00:00 Test Item Value Reference Range Interpretation Comments CULTURE, URINE (test SPECIMEN NUMBER: code = 82770) [id number] CULTURE, [id number] 00:00:00 Test Item Value Reference Range Interpretation Comments CULTURE, URINE (test SPECIMEN NUMBER: code = 50844) [id number] OBSTETRIC PANEL + [id number] 00:00:00 Test Item Value Reference Range Interpretation Comments WBC (test code = 1001) 9.0 K/UL RBC (test code = 1002) 4.58 M/UL HEMOGLOBIN (test code = 14.2 G/DL 1003) HEMATOCRIT (test code = 41.0 % 1004) MCV (test code = 1005) 89.5 fL MCH (test code = 1006) 31.0 PG MCHC (test code = 1007) 34.6 G/DL RDW (test code = 1038) 12.3 % NEUTROPHILS (test code = 73.0 % 1008) LYMPHOCYTES (test code = 16.1 % 1010) MONOCYTES (test code = 1011) 7.3 % EOSINOPHILS (test code = 2.8 % 1012) BASOPHILS (test code = 1013) 0.8 % PLATELET COUNT (test code = 377 K/UL 1015) BLOOD TYPE AND RH (test code O POSITIVE = 3901) ANTIBODY SCREEN (test code = NEGATIVE 3902) RUBELLA ANTIBODY SCREEN 211 IU/ML (test code = 4600) RUBELLA IgG INTERP (test REACTIVE code = 54506) HEPATITIS B SURF AG (test NON-REACTIVE code = 2739) RPR (test code = 62455) NON-REACTIVE RPR TITER (test code = 3500) NOT INDIC. TITER HIV 1/2 4TH GEN, RFLX CONF NON-REACTIVE (test code = 3514) OBSTETRIC PANEL + [id number] 00:00:00 Test Item Value Reference Range Interpretation Comments WBC (test code = 1001) 9.0 K/UL RBC (test code = 1002) 4.58 M/UL HEMOGLOBIN (test code = 14.2 G/DL 1003) HEMATOCRIT (test code = 41.0 % 1004) MCV (test code = 1005) 89.5 fL MCH (test code = 1006) 31.0 PG MCHC (test code = 1007) 34.6 G/DL RDW (test code = 1038) 12.3 % NEUTROPHILS (test code = 73.0 % 1008) LYMPHOCYTES (test code = 16.1 % 1010) MONOCYTES (test code = 1011) 7.3 % EOSINOPHILS (test code = 2.8 % 1012) BASOPHILS (test code = 1013) 0.8 % PLATELET COUNT (test code = 377 K/UL 1015) BLOOD TYPE AND RH (test code O POSITIVE = 3901) ANTIBODY SCREEN (test code = NEGATIVE 3902) RUBELLA ANTIBODY SCREEN 211 IU/ML (test code = 4600) RUBELLA IgG INTERP (test REACTIVE code = 04033) HEPATITIS B SURF AG (test NON-REACTIVE code = 2739) RPR (test code = 80019) NON-REACTIVE RPR TITER (test code = 3500) NOT INDIC. TITER HIV 1/2 4TH GEN, RFLX CONF NON-REACTIVE (test code = 3514) OBSTETRIC PANEL + [id number] 00:00:00 Test Item Value Reference Range Interpretation Comments WBC (test code = 1001) 9.0 K/UL RBC (test code = 1002) 4.58 M/UL HEMOGLOBIN (test code = 14.2 G/DL 1003) HEMATOCRIT (test code = 41.0 % 1004) MCV (test code = 1005) 89.5 fL MCH (test code = 1006) 31.0 PG MCHC (test code = 1007) 34.6 G/DL RDW (test code = 1038) 12.3 % NEUTROPHILS (test code = 73.0 % 1008) LYMPHOCYTES (test code = 16.1 % 1010) MONOCYTES (test code = 1011) 7.3 % EOSINOPHILS (test code = 2.8 % 1012) BASOPHILS (test code = 1013) 0.8 % PLATELET COUNT (test code = 377 K/UL 1015) BLOOD TYPE AND RH (test code O POSITIVE = 3901) ANTIBODY SCREEN (test code = NEGATIVE 3902) RUBELLA ANTIBODY SCREEN 211 IU/ML (test code = 4600) RUBELLA IgG INTERP (test REACTIVE code = 86731) HEPATITIS B SURF AG (test NON-REACTIVE code = 2739) RPR (test code = 68177) NON-REACTIVE RPR TITER (test code = 3500) NOT INDIC. TITER HIV 1/2 4TH GEN, RFLX CONF NON-REACTIVE (test code = 3514) HEPATITIS C REFLEX [id number] 00:00:00 Test Item Value Reference Range Interpretation Comments HEPATITIS C ANTIBODY (test code NON-REACTIVE = 4675) HCV INDEX (test code = 35364) 0.16 HEPATITIS C REFLEX [id number] 00:00:00 Test Item Value Reference Range Interpretation Comments HEPATITIS C ANTIBODY (test code NON-REACTIVE = 4675) HCV INDEX (test code = 06148) 0.16 VARICELLA ZOSTER [id number] 00:00:00 Test Item Value Reference Range Interpretation Comments VARICELLA ZOSTER IgG (test code = 123 INDEX 88703) VARICELLA ZOSTER [id number] 00:00:00 Test Item Value Reference Range Interpretation Comments VARICELLA ZOSTER IgG (test code = 123 INDEX 46710) DRUG ABUSE PANEL 10 WITH [id number] 00:00:00 Test Item Value Reference Range Interpretation Comments AMPHETAMINES (test code = NEGATIVE 3201) BARBITURATES (test code = NEGATIVE 3202) BENZODIAZEPINES (test code NEGATIVE = 3203) CANNABINOIDS (test code = SEE REFLEX TESTING 3204) COCAINE METABOLITE (test NEGATIVE code = 3205) OPIATES (test code = 3209) NEGATIVE OXYCODONE (test code = NEGATIVE 69141) PHENCYCLIDINE (test code = NEGATIVE 3210) METHADONE (test code = NEGATIVE 3207) BUPRENORPHINE (test code = NEGATIVE 18325) DRUG ABUSE PANEL 10 WITH [id number] 00:00:00 Test Item Value Reference Range Interpretation Comments AMPHETAMINES (test code = NEGATIVE 3201) BARBITURATES (test code = NEGATIVE 3202) BENZODIAZEPINES (test code NEGATIVE = 3203) CANNABINOIDS (test code = SEE REFLEX TESTING 3204) COCAINE METABOLITE (test NEGATIVE code = 3205) OPIATES (test code = 3209) NEGATIVE OXYCODONE (test code = NEGATIVE 11689) PHENCYCLIDINE (test code = NEGATIVE 3210) METHADONE (test code = NEGATIVE 3207) BUPRENORPHINE (test code = NEGATIVE 60478) PAP TEST, THINPREP, [id number] 00:00:00 Test Item Value Reference Range Interpretation Comments SOURCE: (test code = 8001) Cervical/Endocervi vipin SLIDES: (test code = 8011) 2 LMP: (test code = 8021) NOT GIVEN SPECIMEN ADEQUACY: (test (NOTE) code = 67388) INTERPRETATION: (test code ASCUS/EPITH. = 36320) ABNORMALITY; SEE BELOW OTHER COMMENTS: (test code (NOTE) = 8081) DIRECTOR MARKETING ANALYTICS: (test Reanna code = 8101) MOLLY Alaniz(ASCP )IAC PATHOLOGIST INTERPRETATION Jackson More BY: (test code = 8122) [facility] LOCATION: (test code = (NOTE) 92629) CPT: (test code = 8140) (NOTE) PAP TEST, THINPREP, [id number] 00:00:00 Test Item Value Reference Range Interpretation Comments SOURCE: (test code = 8001) Cervical/Endocervi vipin SLIDES: (test code = 8011) 2 LMP: (test code = 8021) NOT GIVEN SPECIMEN ADEQUACY: (test (NOTE) code = 38625) INTERPRETATION: (test code ASCUS/EPITH. = 97166) ABNORMALITY; SEE BELOW OTHER COMMENTS: (test code (NOTE) = 8081) DIRECTOR MARKETING ANALYTICS: (test Reanna code = 8101) MOLLY Alaniz(ASCP )IAC PATHOLOGIST INTERPRETATION Jackson More, BY: (test code = 8122) [facility] LOCATION: (test code = (NOTE) 75560) CPT: (test code = 8140) (NOTE) HPV HIGH IF ABNORMAL [id number] 00:00:00 Test Item Value Reference Range Interpretation Comments HPV HIGH IF ABNORMAL THINPREP (test SEE BELOW code = 31793) HPV HIGH IF ABNORMAL [id number] 00:00:00 Test Item Value Reference Range Interpretation Comments HPV HIGH IF ABNORMAL THINPREP (test SEE BELOW code = 85281) HPV HIGH RISK WITH GENOTYPE, TP [REFLEX]2019-03-15 00:00:00 Test Item Value Reference Range Interpretation Comments HPV HIGH RISK INTERP (test code = POSITIVE 51994) HPV 16 (test code = 98544) NEGATIVE HPV 18 (test code = 45812) NEGATIVE HPV, HR, OTHER GENOTYPES (test code POSITIVE = 76641) HPV HIGH RISK WITH GENOTYPE, TP [REFLEX]2019-03-15 00:00:00 Test Item Value Reference Range Interpretation Comments HPV HIGH RISK INTERP (test code = POSITIVE 72482) HPV 16 (test code = 84422) NEGATIVE HPV 18 (test code = 93819) NEGATIVE HPV, HR, OTHER GENOTYPES (test code POSITIVE = 00067) HCG, [id number] 00:00:00 Test Item Value Reference Range Interpretation Comments HCG, QUANTITATIVE (test code = 85201 MIU/ML 2506) HCG, [id number] 00:00:00 Test Item Value Reference Range Interpretation Comments HCG, QUANTITATIVE (test code = 51102 MIU/ML 2506) HCG, [id number] 00:00:00 Test Item Value Reference Range Interpretation Comments HCG, QUANTITATIVE (test code = 27117 MIU/ML 2506) HCG, [id number] 00:00:00 Test Item Value Reference Range Interpretation Comments HCG, QUANTITATIVE (test code = 2506) 5 MIU/ML HCG, [id number] 00:00:00 Test Item Value Reference Range Interpretation Comments HCG, QUANTITATIVE (test code = 2506) 5 MIU/ML HCG, [id number] 00:00:00 Test Item Value Reference Range Interpretation Comments HCG, QUANTITATIVE (test code = 2506) 5 MIU/ML HCG, [id number] 00:00:00 Test Item Value Reference Range Interpretation Comments HCG, QUANTITATIVE (test code = 10 MIU/ML 2506) HCG, [id number] 00:00:00 Test Item Value Reference Range Interpretation Comments HCG, QUANTITATIVE (test code = 10 MIU/ML 2506) HCG, [id number] 00:00:00 Test Item Value Reference Range Interpretation Comments HCG, QUANTITATIVE (test code = 10 MIU/ML 2506) HCG, QUANTITATIVE [ADDED]2019-01-26 00:00:00 Test Item Value Reference Range Interpretation Comments HCG, QUANTITATIVE (test code = 41 MIU/ML 2506) HCG, QUANTITATIVE [ADDED]2019-01-26 00:00:00 Test Item Value Reference Range Interpretation Comments HCG, QUANTITATIVE (test code = 41 MIU/ML 2506) HCG, QUANTITATIVE [ADDED]2019-01-26 00:00:00 Test Item Value Reference Range Interpretation Comments HCG, QUANTITATIVE (test code = 41 MIU/ML 2506) VAGINAL PATHOGENS DNA PANEL [ADDED]2019-01-24 00:00:00 Test Item Value Reference Range Interpretation Comments JESENIA SPECIES (test code TEST NOT PERFORMED = ) G. VAGINALIS (test code = TEST NOT PERFORMED ) T. VAGINALIS (test code = TEST NOT PERFORMED ) VAGINAL PATHOGENS DNA PANEL [ADDED]2019-01-24 00:00:00 Test Item Value Reference Range Interpretation Comments JESENIA SPECIES (test code TEST NOT PERFORMED = ) G. VAGINALIS (test code = TEST NOT PERFORMED ) T. VAGINALIS (test code = TEST NOT PERFORMED ) THC METABOLITE, QUANT, URINE [REFLEX]2019-01-22 00:00:00 Test Item Value Reference Range Interpretation Comments CARBOXY-THC INTERP (test code = Positive 71809) CARBOXY-THC QNT (test code = >500 ng/mL 19513) THC METABOLITE, QUANT, URINE [REFLEX]2019-01-22 00:00:00 Test Item Value Reference Range Interpretation Comments CARBOXY-THC INTERP (test code = Positive 13563) CARBOXY-THC QNT (test code = >500 ng/mL 12368) HCG, QUANTITATIVE [ADDED]2019-01-21 00:00:00 Test Item Value Reference Range Interpretation Comments HCG, QUANTITATIVE (test code = 1043 MIU/ML 2506) HCG, QUANTITATIVE [ADDED]2019-01-21 00:00:00 Test Item Value Reference Range Interpretation Comments HCG, QUANTITATIVE (test code = 1043 MIU/ML 2506) NOTE: [ADDED]2019-01-21 00:00:00 Test Item Value Reference Range Interpretation Comments NOTE: (test code = 998) (NOTE) HCG, QUANTITATIVE [ADDED]2019-01-21 00:00:00 Test Item Value Reference Range Interpretation Comments HCG, QUANTITATIVE (test code = 1043 MIU/ML 2506) PAP TEST, THINPREP, [id number] 00:00:00 Test Item Value Reference Range Interpretation Comments SOURCE: (test code = Cervical/Endocervical 8001) SLIDES: (test code = 2 8011) LMP: (test code = 8021) 11/01/2018 SPECIMEN ADEQUACY: (NOTE) (test code = 60309) INTERPRETATION: (test UNSATISFACTORY; SEE code = 35470) BELOW OTHER COMMENTS: (test (NOTE) code = 8081) DIRECTOR MARKETING ANALYTICS: (test Candy Garciah code = 8101) BobbyCT(ASCP)IAC QC TECHNOLOGIST: (test Biju code = 8111) MOLLY Silverman(ASCP)IAC LOCATION: (test code = (NOTE) 09296) CPT: (test code = 8140) (NOTE) HPV HIGH IF ABNORMAL [id number] 00:00:00 Test Item Value Reference Range Interpretation Comments HPV HIGH IF ABNORMAL CRITERIA NOT MET THINPREP (test code = 05738) HPV HIGH IF ABNORMAL [id number] 00:00:00 Test Item Value Reference Range Interpretation Comments HPV HIGH IF ABNORMAL CRITERIA NOT MET THINPREP (test code = 36804) CULTURE, [id number] 00:00:00 Test Item Value Reference Range Interpretation Comments CULTURE, URINE (test SPECIMEN NUMBER: code = 25306) [id number] CULTURE, [id number] 00:00:00 Test Item Value Reference Range Interpretation Comments CULTURE, URINE (test SPECIMEN NUMBER: code = 55054) [id number] PAP TEST, THINPREP, [id number] 00:00:00 Test Item Value Reference Range Interpretation Comments SOURCE: (test code = Cervical/Endocervical 8001) SLIDES: (test code = 2 8011) LMP: (test code = 8021) 11/01/2018 SPECIMEN ADEQUACY: (NOTE) (test code = 41388) INTERPRETATION: (test UNSATISFACTORY; SEE code = 41688) BELOW OTHER COMMENTS: (test (NOTE) code = 8081) DIRECTOR MARKETING ANALYTICS: (test Candy Connelly code = 8101) DiamanteCT(ASCP)IAC QC TECHNOLOGIST: (test Biju code = 8111) MOLLY Silverman(ASCP)IAC LOCATION: (test code = (NOTE) 86649) CPT: (test code = 8140) (NOTE) OBSTETRIC PANEL + [id number] 00:00:00 Test Item Value Reference Range Interpretation Comments WBC (test code = 1001) 9.5 K/UL RBC (test code = 1002) 4.73 M/UL HEMOGLOBIN (test code = 14.7 G/DL 1003) HEMATOCRIT (test code = 42.4 % 1004) MCV (test code = 1005) 89.6 fL MCH (test code = 1006) 31.1 PG MCHC (test code = 1007) 34.7 G/DL RDW (test code = 1038) 11.7 % NEUTROPHILS (test code = 77.4 % 1008) LYMPHOCYTES (test code = 14.1 % 1010) MONOCYTES (test code = 1011) 6.1 % EOSINOPHILS (test code = 1.7 % 1012) BASOPHILS (test code = 1013) 0.7 % PLATELET COUNT (test code = 351 K/UL 1015) BLOOD TYPE AND RH (test code O POSITIVE = 3901) ANTIBODY SCREEN (test code = NEGATIVE 3902) RUBELLA ANTIBODY SCREEN 217 IU/ML (test code = 4600) RUBELLA IgG INTERP (test REACTIVE code = 70688) HEPATITIS B SURF AG (test NON-REACTIVE code = 2739) RPR (test code = 28893) NON-REACTIVE RPR TITER (test code = 3500) NOT INDIC. TITER HIV 1/2 4TH GEN, RFLX CONF NON-REACTIVE (test code = 3514) HEPATITIS C REFLEX [id number] 00:00:00 Test Item Value Reference Range Interpretation Comments HEPATITIS C ANTIBODY (test code NON-REACTIVE = 4675) HCV INDEX (test code = 03288) 0.14 HEPATITIS C REFLEX [id number] 00:00:00 Test Item Value Reference Range Interpretation Comments HEPATITIS C ANTIBODY (test code NON-REACTIVE = 4675) HCV INDEX (test code = 24302) 0.14 HEMOGLOBIN [id number] 00:00:00 Test Item Value Reference Range Interpretation Comments HEMOGLOBIN A1 (test code = 2575) 97.1 % HEMOGLOBIN A2 (test code = 2576) 2.9 % HEMOGLOBIN F () (test code 0.0 % = 2722) HEMOGLOBIN S (test code = 2724) NONE % HEMOGLOBIN C (test code = 2726) NONE % OTHER HEMOGLOBIN VARIANT (test NONE DETEC % code = 45256) PATHOLOGIST'S INTERPRETATION (NOTE) (test code = 2577) HEMOGLOBIN [id number] 00:00:00 Test Item Value Reference Range Interpretation Comments HEMOGLOBIN A1 (test code = 2575) 97.1 % HEMOGLOBIN A2 (test code = 2576) 2.9 % HEMOGLOBIN F () (test code 0.0 % = 2722) HEMOGLOBIN S (test code = 2724) NONE % HEMOGLOBIN C (test code = 2726) NONE % OTHER HEMOGLOBIN VARIANT (test NONE DETEC % code = 58338) PATHOLOGIST'S INTERPRETATION (NOTE) (test code = 2577) HEMOGLOBIN [id number] 00:00:00 Test Item Value Reference Range Interpretation Comments HEMOGLOBIN A1 (test code = 2575) 97.1 % HEMOGLOBIN A2 (test code = 2576) 2.9 % HEMOGLOBIN F () (test code 0.0 % = 2722) HEMOGLOBIN S (test code = 2724) NONE % HEMOGLOBIN C (test code = 2726) NONE % OTHER HEMOGLOBIN VARIANT (test NONE DETEC % code = 88899) PATHOLOGIST'S INTERPRETATION (NOTE) (test code = 2577) VARICELLA ZOSTER [id number] 00:00:00 Test Item Value Reference Range Interpretation Comments VARICELLA ZOSTER IgG (test code = 130 INDEX 61628) VARICELLA ZOSTER [id number] 00:00:00 Test Item Value Reference Range Interpretation Comments VARICELLA ZOSTER IgG (test code = 130 INDEX 13899) DRUG ABUSE PANEL 10 WITH [id number] 00:00:00 Test Item Value Reference Range Interpretation Comments AMPHETAMINES (test code = NEGATIVE 3201) BARBITURATES (test code = NEGATIVE 3202) BENZODIAZEPINES (test code NEGATIVE = 3203) CANNABINOIDS (test code = SEE REFLEX TESTING 3204) COCAINE METABOLITE (test NEGATIVE code = 3205) OPIATES (test code = 3209) NEGATIVE OXYCODONE (test code = NEGATIVE 03370) PHENCYCLIDINE (test code = NEGATIVE 3210) METHADONE (test code = NEGATIVE 3207) BUPRENORPHINE (test code = NEGATIVE 73073) DRUG ABUSE PANEL 10 WITH [id number] 00:00:00 Test Item Value Reference Range Interpretation Comments AMPHETAMINES (test code = NEGATIVE 3201) BARBITURATES (test code = NEGATIVE 3202) BENZODIAZEPINES (test code NEGATIVE = 3203) CANNABINOIDS (test code = SEE REFLEX TESTING 3204) COCAINE METABOLITE (test NEGATIVE code = 3205) OPIATES (test code = 3209) NEGATIVE OXYCODONE (test code = NEGATIVE 19580) PHENCYCLIDINE (test code = NEGATIVE 3210) METHADONE (test code = NEGATIVE 3207) BUPRENORPHINE (test code = NEGATIVE 82460) HCG, QUANTITATIVE [ADDED]2019-01-19 00:00:00 Test Item Value Reference Range Interpretation Comments HCG, QUANTITATIVE (test code = 965 MIU/ML 2506) HCG, QUANTITATIVE [ADDED]2019-01-19 00:00:00 Test Item Value Reference Range Interpretation Comments HCG, QUANTITATIVE (test code = 965 MIU/ML 2506) HCG, QUANTITATIVE [ADDED]2019-01-19 00:00:00 Test Item Value Reference Range Interpretation Comments HCG, QUANTITATIVE (test code = 965 MIU/ML 2506) OBSTETRIC PANEL + [id number] 00:00:00 Test Item Value Reference Range Interpretation Comments WBC (test code = 1001) 9.5 K/UL RBC (test code = 1002) 4.73 M/UL HEMOGLOBIN (test code = 14.7 G/DL 1003) HEMATOCRIT (test code = 42.4 % 1004) MCV (test code = 1005) 89.6 fL MCH (test code = 1006) 31.1 PG MCHC (test code = 1007) 34.7 G/DL RDW (test code = 1038) 11.7 % NEUTROPHILS (test code = 77.4 % 1008) LYMPHOCYTES (test code = 14.1 % 1010) MONOCYTES (test code = 1011) 6.1 % EOSINOPHILS (test code = 1.7 % 1012) BASOPHILS (test code = 1013) 0.7 % PLATELET COUNT (test code = 351 K/UL 1015) BLOOD TYPE AND RH (test code O POSITIVE = 3901) ANTIBODY SCREEN (test code = NEGATIVE 390) RUBELLA ANTIBODY SCREEN 217 IU/ML (test code = 4600) RUBELLA IgG INTERP (test REACTIVE code = 06582) HEPATITIS B SURF AG (test NON-REACTIVE code = 2739) RPR (test code = 83786) NON-REACTIVE RPR TITER (test code = 3500) NOT INDIC. TITER HIV 1/2 4TH GEN, RFLX CONF NON-REACTIVE (test code = 3514) OBSTETRIC PANEL + [id number] 00:00:00 Test Item Value Reference Range Interpretation Comments WBC (test code = 1001) 9.5 K/UL RBC (test code = 1002) 4.73 M/UL HEMOGLOBIN (test code = 14.7 G/DL 1003) HEMATOCRIT (test code = 42.4 % 1004) MCV (test code = 1005) 89.6 fL MCH (test code = 1006) 31.1 PG MCHC (test code = 1007) 34.7 G/DL RDW (test code = 1038) 11.7 % NEUTROPHILS (test code = 77.4 % 1008) LYMPHOCYTES (test code = 14.1 % 1010) MONOCYTES (test code = 1011) 6.1 % EOSINOPHILS (test code = 1.7 % 1012) BASOPHILS (test code = 1013) 0.7 % PLATELET COUNT (test code = 351 K/UL 1015) BLOOD TYPE AND RH (test code O POSITIVE = 3901) ANTIBODY SCREEN (test code = NEGATIVE 3902) RUBELLA ANTIBODY SCREEN 217 IU/ML (test code = 4600) RUBELLA IgG INTERP (test REACTIVE code = 52123) HEPATITIS B SURF AG (test NON-REACTIVE code = 2739) RPR (test code = 34172) NON-REACTIVE RPR TITER (test code = 3500) NOT INDIC. TITER HIV 1/2 4TH GEN, RFLX CONF NON-REACTIVE (test code = 0074)
--- NOTE | 2023-02-18 12:23 | EDPHYS ---
Physician Documentation [facility] Name: Antonia Green Age: 27 yrs Sex: Female : 1995 Arrival Date: 02/18/2023 Time: 10:36 Bed IW10 Private MD: ED Physician Modesta Healy HPI: 02/18 12:19 This 27 yrs old Female presents to ER via Ambulatory with complaints of snw Abdominal Pain - Week. 12:19 The patient presents with abdominal pain in the left upper quadrant. Onset: The snw symptoms/episode began/occurred gradually. The symptoms do not radiate. It is unknown whether or not the patient has recently seen a physician, pt has a Ca125 elevation per report. pt wants to r/o ovarian ca. Historical: - Allergies: 11:05 No Known Allergies; bp - Home Meds: 11:05 None [Active]; bp - PMHx: 11:05 Anxiety; bp - Immunization history:: Adult Immunizations. - Social history:: Smoking status: Patient denies any tobacco usage or history of. ROS: 12:20 Constitutional: Negative for fever, chills, and weight loss, Eyes: Negative for injury, snw pain, redness, and discharge, ENT: Negative for injury, pain, and discharge, Neck: Negative for injury, pain, and swelling, Cardiovascular: Negative for chest pain, palpitations, and edema, Respiratory: Negative for shortness of breath, cough, wheezing, and pleuritic chest pain, Back: Negative for injury and pain, : Negative for injury, bleeding, discharge, and swelling, MS/Extremity: Negative for injury and deformity, Skin: Negative for injury, rash, and discoloration, Neuro: Negative for headache, weakness, numbness, tingling, and seizure, Psych: Negative for depression, anxiety, suicide ideation, homicidal ideation, and hallucinations. 12:20 Abdomen/GI: Positive for abdominal pain, of the left upper quadrant. Exam: 12:23 Constitutional: This is a well developed, well nourished patient who is awake, alert, snw and in no acute distress. Vital Signs: 11:03 BP 131 / 86; Pulse 87; Resp 16; Temp 98; Pulse Ox 100% ; Weight 58.97 kg; Height 5 ft. bp 5 in. ; 11:03 Body Mass Index 21.63 (58.97 kg, 165.1 cm) bp MDM: 12:21 Differential diagnosis: non-specific abd pain. Data reviewed: vital signs, nurses snw notes. Counseling: I had a detailed discussion with the patient and/or guardian regarding: the historical points, exam findings, and any diagnostic results supporting the discharge/admit diagnosis, the presence of at least one elevated blood pressure reading (>120/80) during this emergency department visit, pt left prior to giving urine specimen or going to US. Refusal of service: The patient/guardian displays adequate decision making capability and despite a detailed discussion of alternatives, benefits, risks, and consequences refuses: all lab tests, US. Special discussion: Based on the history and exam findings, there is no indication for further emergent testing or inpatient evaluation. I discussed with the patient/guardian the need to see the OB Gyne specialist for further evaluation of the symptoms. I discussed with the patient/guardian the need to see the primary care provider for further evaluation of the symptoms. 12:23 Patient medically screened. snw Administered Medications: No medications were administered Disposition Summary: 02/18/23 12:23 Discharge Ordered Location: Home snw Condition: Stable snw Diagnosis - Upper abdominal pain, unspecified snw Followup: snw - With: Emergency Department - When: As needed - Reason: Worsening of condition Followup: snw - With: Private Physician - When: Today - Reason: Recheck today's complaints, Continuance of care, Re-evaluation by your physician Forms: - Medication Reconciliation Form snw - Thank You Letter snw - Antibiotic Education snw - Prescription Opioid Use snw - Patient Portal Instructions snw Signatures: Dispatcher [employer] EDMS Grisel Mckeon, TRAVEL OT-C TRAVEL OT-Csnw Rich Bach, RN RN bp Corrections: (The following items were deleted from the chart) 12:22 11:32 Pelvis Complete+US.MOLINA.LUISA ordered. EDDC EDMS
--- NOTE | 2023-02-18 12:23 | ER ---
Nurse's Notes [facility] Name: Antonia Green Age: 27 yrs Sex: Female : 1995 Arrival Date: 02/18/2023 Time: 10:36 Bed IW10 Private MD: Diagnosis: Upper abdominal pain, unspecified Presentation: 02/18 11:03 Chief complaint: Patient states: LUQ PAIN x1 WK, CONCERN FOR OVARIAN CA, HIGH CA125 bp LEVELS. Coronavirus screen: At this time, the client does not indicate any symptoms associated with coronavirus-19. Ebola Screen: No symptoms or risks identified at this time. Initial Sepsis Screen: Does the patient meet any 2 criteria? No. Patient's initial sepsis screen is negative. Does the patient have a suspected source of infection? No. Patient's initial sepsis screen is negative. Risk Assessment: Do you want to hurt yourself or someone else? Patient reports no desire to harm self or others. Onset of symptoms is unknown. 11:03 Method Of Arrival: Ambulatory bp 11:03 Acuity: MADI 3 bp Historical: - Allergies: 11:05 No Known Allergies; bp - Home Meds: 11:05 None [Active]; bp - PMHx: 11:05 Anxiety; bp - Immunization history:: Adult Immunizations. - Social history:: Smoking status: Patient denies any tobacco usage or history of. Screenin:[facility] ED Fall Risk Assessment (Adult) History of falling in the last 3 months, bp including since admission No falls in past 3 months (0 pts). Abuse screen: Denies threats or abuse. Denies injuries from another. Nutritional screening: No deficits noted. Tuberculosis screening: No symptoms or risk factors identified. Assessment: 12:17 Reassessment: PT DNA x1 FOR U/S. bp 12:30 Reassessment: PT LEFT WITHOUT DC PAPERS. bp Vital Signs: 11:03 BP 131 / 86; Pulse 87; Resp 16; Temp 98; Pulse Ox 100% ; Weight 58.97 kg; Height 5 ft. bp 5 in. ; 11:03 Body Mass Index 21.63 (58.97 kg, 165.1 cm) bp ED Course: 10:39 Patient arrived in ED. mg5 10:57 Grisel Mckeon FNP-C is PHCP. snw 10:57 Modesta Healy MD is Attending Physician. snw 11:04 Triage completed. bp 11:05 Arm band placed on. bp 12:30 Rich Bach, RN is Primary Nurse. bp 12:30 Patient has correct armband on for positive identification. bp 12:30 No provider procedures requiring assistance completed. Patient did not have IV access bp during this emergency room visit. Administered Medications: No medications were administered Outcome: 12:23 Discharge ordered by . snw 12:30 Discharged to home ambulatory. bp 12:30 Condition: stable 12:31 Patient left the ED. bp Signatures: Grisel Mckeon, SECURITY ROVER-C SECURITY ROVER-Csnw Rich Bach, RN RN bp Nicole Olivas mg5
[2023-02-18 12:41] VITALS: BP 131/86; TEMP 98; O2SAT 100
== END 2023-02-18 12:31 | disposition home or self-care (01) ==
LOC: ER 10:36
DX: R10.12 Left upper quadrant pain (principal)
CPT/HCPCS: 99281